=== PATIENT | female | born 1990 | race Two or more races ===

== ENCOUNTER 2016-12-22 22:09 | Emergency (ER) | payer OTHER ==
[~2016-12-22] VITALS: Ht 160 cm; Wt 52.2 kg
[~2016-12-22 22:09] MED LIST: IRON18TA
[2016-12-22 22:25] VITALS: BP 114/60
== END 2016-12-23 01:04 | disposition home or self-care (01) ==
LOC: ER 22:11
DX: J06.9 Acute upper respiratory infection, unspecified (principal); H92.02 Otalgia, left ear
CPT/HCPCS: 99281; A4606; Z7610; Z7502

== ENCOUNTER 2017-05-18 21:15 | Emergency (ER) | payer OTHER ==
[~2017-05-18] VITALS: Ht 160 cm; Wt 51.3 kg
--- NOTE | 2017-05-18 21:22 | NUR ---
PT AMBULATORY TO ER BED 09. C/O MIDSTERNAL CHEST DISCOMFORT THAT STARTED 1 HOUR [facility] [employer] REPRESENTATIVE. PT DENIES SOB. PT IS 10 WEEKS . GOWNED AND PLACED ON MONITOR. VSS. AWAITING MD GUZMAN.
--- NOTE | 2017-05-18 22:50 | NUR ---
ALISHA CLAY DIGGER AT BEDSIDE FOR EVAL.
--- NOTE | 2017-05-18 23:48 | NUR ---
REPORT TO CHARGE NURSE YEIMI FOR FRANCESCO.
[2017-05-19 00:59] VITALS: BP 113/64
--- NOTE | 2017-05-19 00:59 | NUR ---
Patient discharged to home in stable condition. Written and verbal after care instructions given. Patient verbalizes understanding of instruction. ambulatory with a steady gait noted. pt family members at bedside to take pt home.
== END 2017-05-19 01:00 | disposition home or self-care (01) ==
LOC: ER 21:20
DX: O26.891 Other specified pregnancy related conditions, first trimester (principal); R07.89 Other chest pain; Z3A.10 10 weeks gestation of pregnancy
CPT/HCPCS: 76770; 93005; 99284; A4606; Z7610